=== PATIENT | male | born 1975 | race Two or more races ===

== ENCOUNTER 2025-06-01 19:56 | Emergency (ER) | payer MEDICAID ==
[~2025-06-01] VITALS: Ht 188 cm; Wt 104.3 kg
[2025-06-01 20:00] VITALS: BP 130/79
[2025-06-01] MEDS ORDERED: ONDANSETRON ODT 4 MG TAB.RAPDIS ONE (20:32)
[2025-06-01] MEDS ORDERED: CYCLOBENZAPRINE HCL 10 MG TABLET ONE (20:33)
[2025-06-01] MEDS ORDERED: HYDROMORPHONE 2 MG/1 ML DISP.SYRIN ONE (20:33)
[2025-06-01] MEDS: CYCLOBENZAPRINE HCL 10 MG TABLET PO ONE (20:43)
[2025-06-01] MEDS: ONDANSETRON ODT 4 MG TAB.RAPDIS SL ONE (20:43)
[2025-06-01] MEDS: HYDROMORPHONE 1 MG/1 ML DISP.SYRIN IM ONE (20:44)
[2025-06-01] MEDS ORDERED: CYCL10TA9 PO (22:07)
[2025-06-01] MEDS ORDERED: HYDR-3980 PO (22:07)
[2025-06-01] MEDS ORDERED: ONDA4TAB11 PO (22:07)
[2025-06-01 22:20] VITALS: BP 127/74; TEMP 97.8; O2SAT 97
== END 2025-06-01 22:20 | disposition home or self-care (01) ==
LOC: ER 20:31
DX: S13.4XXA Sprain of ligaments of cervical spine, initial encounter (principal); M54.50 Low back pain, unspecified; R11.2 Nausea with vomiting, unspecified; M25.512 Pain in left shoulder; K21.9 Gastro-esophageal reflux disease without esophagitis; V43.52XA Car driver injured in collision with other type car in traffic accident, initial encounter; Y93.89 Activity, other specified; Y92.488 Other paved roadways as the place of occurrence of the external cause; Y99.8 Other external cause status
CPT/HCPCS: 99285; 72125; 72080; 73000; 73030; 96372; J1171; A4606; A4663; Q0162